=== PATIENT | female | born 1945 | race Caucasian/White ===

== ENCOUNTER 2018-07-20 21:16 | Inpatient (IN) | payer OTHER ==
--- NOTE | 2018-07-20 21:28 | PDOC ---
Attending Attestation - HPI HPI: 07/20/18 22:16 The patient is a 72 year old female with a significant past medical history of venostasis, multiple chemical sensitivity who presents to the emergency department via EMS with noted weakness since earlier this evening. The patient reports that she was at home when she began to experience some right eye pain and right hand numbness. The patient reports that she began to feel disoriented to where the vision in her right eye was off. The patient reports that her symptoms onset at about 8:20 pm. The patients niece, at bedside, states that she walked into the room and noticed the patient slumped over to her right side with a slight facial droop. The patient denies any other symptoms or complaints. She denies any fever, chills, nausea, vomiting, diarrhea, constipation or urinary symptoms. Denies any chest pain, shortness of breath headache, lower extremity numbness or dizziness. Documentation prepared by Felice Wiley, acting as emergency medical service manager for Devi Gonzalez DO, MD. <Felice Wiley - Last Filed: 07/20/18 22:18> - Resident Resident Name: Pamela Harrison - ED Attending Attestation I have performed the following: I have examined & evaluated the patient, The case was reviewed & discussed with the resident, I agree w/resident's findings & plan - Physicial Exam PE: 07/20/18 23:54 Agree with resident's physical exam - Medical Decision Making 07/20/18 23:55 72-year-old female with approximately 1-1/2 hours of right-sided facial and hand numbness preceded by right sided neck and headache Patient's neurological symptoms had improved at the time of arrival Stroke alert was activated due to focality of symptoms and time of onset is to repeat initial NIH was 2, repeat after CT scan was 1 [address] brain showed no acute abnormality Case discussed initially with Dr. Soto, neurology who does not recommend thrombolytics at this time On reevaluation at 12 AM patient is asymptomatic and states she feels back to baseline She is refusing a CTA of the head and neck due to her fear of IV contrast She was made aware that this may result in a delay in diagnosis affecting her prognosis and care, she has verbalized understanding and states that she will discuss possibility of MRI with staff in the morning She is agreeing to admission at this time Impression TIA <Devi Gonzalez - Last Filed: 07/21/18 00:01>
--- NOTE | 2018-07-20 21:31 | PDOC ---
History of Present Illness - General Chief Complaint: Weakness Stated Complaint: RT WEAKNESS Time Seen by Provider: 07/20/18 21:26 - History of Present Illness Initial Comments: 72 year old female with PMH of osteoarthritis and remote hypothyroidism ( currently unmedicated) presenting with right arm paresthesias, right sided headache/ facial pain, and left sided facial droop since 20:30 PM. Her last known well was 20:20. She called her niece and told her that she "felt funny" and was leaning to the left. States that her headache was a sharp and radiating pain 8/10 on the right side of her head stemming from her neck. She also felt some numbness on the dorsal aspect of her right hand. Denied any weakness. Her left face demonstrated minor paralysis on presentation to our ED. She stated that her hand numbness also improved. She was also complaining of some right sided blurry vision. Denies any fevers, chills, nausea, vomiting, chills, or other symptoms. Of note, she has a baseline weakness of her legs bilaterally and uses a walker at home. We ended up calling a yadi srivastava on her. 07/20/18 21:32 tPA Exclusion Checklist 0-3hr - Time Elapsed Date last known well: 07/20/18 Time last known well: 20:20 Elaspsed time: Day(s) and 10 Hour(s) and 38 Minutes - Thrombolytic Therapy Candidate Is the patient eligible for Thrombolytic Therapy?: Yes - Exclusion Criteria 0-3hr SBP greater than 185 or DBP greater than 110mmHg despite tx: No Recent IC/spinal surgery,head trauma or stroke w/in last 3mo: No Hx of previous IC hemorrhage, IC neoplasm, AVM or aneurysm: No Active internal bleeding: No Blding diathesis(low plt ct, inc PTT,INR>1.7 or use of NOAC): No Symptoms suggest subarachnoid hemorrhage: No CT demonstrates multilobar infarct(>1/3 cerebral hemiphere): No Arterial puncture at noncompressible site in previous 7 days: No - Relative Exclusion Criteria 0-3h Life expectancy <1yr/severe co-morbid illness/[employer] on admit: No : No Patient/family refused: No Rapid improvement: Yes Stroke severity too mild: No Recent acute [place] (w/in previous 3 months): No Seizure at onset with postictal residual neuro impairments: No Major surgery or serious trauma w/in previous 14 days: No Recent GI or hemorrhage (w/in previous 21 days): No - Ineligibility reason(s) Reasons No tPA given: See reason(s) noted above (Improvement and very low NIHSS - discussed with Neuro Dr. Diaz) NIH Stroke Scale - Last Known Well Date/Time & Onset Date Last Known Well: 07/20/18 Time Last Known Well: 20:20 - Initial Evaluation Level of consciousness: Alert Ask patient the month and their age: Answers both correctly Ask patient to open & close eyes; make fist and let go: Obeys both correctly Best gaze (horizontal eye movement): Normal Visual field testing: No visual field loss Facial paresis (Show teeth/raise eyebrows/close eyes tight): Minor paralysis ( flattened nasolabial fold, asymmetry on smiling) (left left angle) Motor Function: Left Arm: Normal Motor Function: Right Arm: Normal (extends arm 90 (or 45) degrees for 10 seconds without drift Motor Function: Left Leg: Untestable (Joint fused or limb amputated), explain: (chronic left leg weakness) Motor Function: Right Leg: Normal (extends leg 30 degrees for 5 seconds without drift) Limb Ataxia: Untestable (Joint fused or limb amputated), explain: (bilaterla leg weakness) Sensory(Use pinprick test arms,legs,trunk,face/side to side): Mild to moderate decrease in sensation Best language (Describe picture, name items, read sentences): No Aphasia Dysarthria (read several words): Normal articulation Extinction and Inattention: No abnormality (Exam performed at 21:17) - Total Score NIH Stroke Scale Score: 2 Past History - Past Medical History Allergies/Adverse Reactions: Allergies Allergy/AdvReac Type Severity Reaction Status Date / Time No Known Allergies Allergy Verified 07/20/18 21:25 Home Medications: Ambulatory Orders NK [No Known Home Medication] 07/20/18 - Suicide/Smoking/Psychosocial Hx Smoking History: Never smoked Have you smoked in the past 12 months: No Information on smoking cessation initiated: No Hx Alcohol Use: No Drug/Substance Use Hx: No Review of Systems - Review of Systems Constitutional: No: Chills, Diaphoresis, Fever, Loss of Appetite HEENTM: Yes: Blurred Vision. No: Eye Pain Respiratory: No: Cough, Orthopnea, Shortness of Breath, Wheezing Cardiac (ROS): No: Chest Pain, Edema, Irregular Heart Rate ABD/GI: No: Diarrhea, Nausea, Vomiting : No: Dysuria, Discharge, Frequency Musculoskeletal: No: Back Pain, Joint Pain, Joint Swelling Integumentary: No: Lesions, Lumps, Pallor Neurological: Yes: Headache. No: Numbness, Paresthesia Psychiatric: No: Anxiety, Depression Hematologic/Lymphatic: No: Anemia, Blood Clots, Easy Bleeding, Easy Bruising *Physical Exam - Vital Signs Last Vital Signs Temp Pulse Resp BP Pulse Ox 97.3 F L 94 H 17 143/98 100 07/20/18 21:16 07/20/18 21:16 07/20/18 21:16 07/20/18 21:16 07/20/18 21:16 - Physical Exam General Appearance: Yes: Nourished, Appropriately Dressed. No: Apparent Distress HEENT: positive: EOMI, JAMEL, Normal ENT Inspection, Normal Voice Neck: positive: Trachea midline, Normal Thyroid, Supple. negative: Tender, Rigid Respiratory/Chest: positive: Lungs Clear, Normal Breath Sounds. negative: Chest Tender, Respiratory Distress, Accessory Muscle Use Cardiovascular: positive: Regular Rhythm, Regular Rate Gastrointestinal/Abdominal: positive: Normal Bowel Sounds, Flat, Soft. negative : Tender Lymphatic: negative: Adenopathy, Tenderness Musculoskeletal: positive: Normal Inspection. negative: Decreased Range of Motion Integumentary: positive: Normal Color, Dry, Warm Neurologic: positive: Fully Oriented, Alert, Normal Mood/Affect, Motor Strength 5/5, Facial Droop (left sided partial droop at the edge of the lip), Sensory Deficit (right dorsawl hand paresthesias with partial genealized numbness.), Other Moderate Sedation - Procedure Monitoring Vital Signs: Procedure Monitoring Vital Signs Temperature 97.3 F L 07/20/18 21:16 Pulse Rate 94 H 07/20/18 21:16 Respiratory Rate 17 07/20/18 21:16 Blood Pressure 143/98 07/20/18 21:16 O2 Sat by Pulse Oximetry (%) 100 07/20/18 21:16 ED Treatment Course - LABORATORY CBC & Chemistry Diagram: 07/21/18 05:25 07/21/18 05:25 Medical Decision Making - Medical Decision Making 72 year old presenting with concern for CVA within window but low stroke scale of 2 on admission that improved to [address] so TPA withheld. Discussed case with Dr. Diaz of neurology as well and he agrees with withholding TPA. Overall story is atypical for stroke as she had right handed paresthesias with left sided facial droop. Furthermore, she states that she has "reactions to everything" but never is clear on what her reactions are. States she feels "cooky" and has trouble breasting but never had hives, angioedema, or anaphylactic reactions. 07/21/18 00:[address] Diaz and he agreed with CTA brain, CTA neck but the patient was hesitant originally. Admitted to floor for TIA rule out with negative head CT and pending CTA head/ neck pending. 07/21/18 06:58 *DC/Admit/Observation/Transfer Diagnosis at time of Disposition: TIA (transient ischemic attack) - Discharge Dispostion Condition at time of disposition: Fair Decision to Admit order: Yes - Referrals - Patient Instructions - Post Discharge Activity
[2018-07-20] MEDS: SODIUM CHLORIDE 1,000 ML IV SCH (21:47)
[2018-07-20 22:24] LABS: ALBUMIN 4.1 g/dl (3.4-5.0); ALK PHOS 856 U/L (45-117); ANION GAP 11 MMOL/L (8-16); BILIRUBIN,TOTAL 0.7 mg/dL (0.2-1); BLOOD UREA NITROGEN 14 mg/dL (7-18); CALCIUM 8.1 mg/dL (8.5-10.1); CHLORIDE 110 mmol/L (98-107); CHOLESTEROL 192 mg/dL (50-200); CO2 23 mmol/L (21-32); CREATININE 0.6 mg/dL (0.55-1.3); GLUCOSE,RANDOM 101 mg/dL (74-106); HDL CHOLESTEROL 90 mg/dL (40-60); POTASSIUM 3.8 mmol/L (3.5-5.1); SGOT/AST 17 U/L (15-37); SGPT/ALT 14 U/L (13-61); SODIUM 145 mmol/L (136-145); TOT PROT 7.1 g/dl (6.4-8.2); TRIGLYCERIDES 92 mg/dL (0-150)
[2018-07-20 22:42] LABS: BASO % 0.5 % (0-2.0); EOS % 0.6 % (0-4.5); HEMATOCRIT 43.2 % (32.4-45.2); HEMOGLOBIN 14.5 GM/dL (10.7-15.3); LYMPH % 15.9 % (8-40); MCH 31.4 pg (25.7-33.7); MCHC 33.5 g/dl (32.0-36.0); MEAN CELL VOLUME 93.7 fl (80-96); MEAN PLT VOLUME 9.1 fl (7.5-11.1); MONO % 2.7 % (3.8-10.2); NEUT % 80.3 % (42.8-82.8); PLATELET COUNT 185 K/MM3 (134-434); RBC 4.61 M/mm3 (3.60-5.2); RDW 14.4 % (11.6-15.6); WHITE BLOOD COUNT 4.3 K/mm3 (4.0-10.0)
[2018-07-20 22:46] LABS: INR 1.1 (0.83-1.09)
[2018-07-20] MEDS ORDERED: ACETAMINOPHEN 500 MG TABLET (FP) PO ONE (23:11)
[2018-07-20] MEDS ORDERED: ASPIRIN 81 MG CHEWABLE TABLETS PO ONE (23:15)
[2018-07-20] MEDS ORDERED: ATORVASTATIN CA 40 MG TABLET (FP) PO ONE (23:17)
[2018-07-20] MEDS ORDERED: ACETAMINOPHEN 325 MG TABLET (FP) ONE (23:36)
[2018-07-20] MEDS ORDERED: ATORVASTATIN CA 40 MG TABLET (FP) ONE (23:37)
[2018-07-20] MEDS ORDERED: ASPIRIN COATED 81 MG TABLET.EC ONE (23:37)
--- NOTE | 2018-07-20 23:37 | PDOC ---
NIH Stroke Scale - Last Known Well Date/Time & Onset Date Last Known Well: 07/20/18 Time Last Known Well: 20:20 - Initial Evaluation Level of consciousness: Alert Ask patient the month and their age: Answers both correctly Ask patient to open & close eyes; make fist and let go: Obeys both correctly Best gaze (horizontal eye movement): Normal Visual field testing: No visual field loss Facial paresis (Show teeth/raise eyebrows/close eyes tight): Minor paralysis ( flattened nasolabial fold, asymmetry on smiling) Motor Function: Left Arm: Normal Motor Function: Right Arm: Normal (extends arm 90 (or 45) degrees for 10 seconds without drift Motor Function: Left Leg: Untestable (Joint fused or limb amputated), explain: (Chronically weak) Motor Function: Right Leg: Normal (extends leg 30 degrees for 5 seconds without drift) Limb Ataxia: Untestable (Joint fused or limb amputated), explain: (Chronic weakness) Sensory(Use pinprick test arms,legs,trunk,face/side to side): Normal (Sensory deficit in right hand improved completely. Exam performed after CT scan at 22:00 ) Best language (Describe picture, name items, read sentences): No Aphasia Dysarthria (read several words): Normal articulation Extinction and Inattention: No abnormality - Total Score NIH Stroke Scale Score: 1
--- NOTE | 2018-07-21 02:05 | HP ---
CHIEF COMPLAINT: Right sided headache PCP: Dr. Jozef Cox (cardio) HISTORY OF PRESENT ILLNESS: The patient is a 72 yo f w/ PMH hypothryoidism (not currently on medication) and OA who was brought into the ED from home c/o right sided headache and left sided weakness since 8:30 pm this evening. The patient states that she was seated at home when she felt an acute onset of 8/10 right sided headache which centered over her right eye and radiated down the right side of her neck. This headache was associated with "weird changes" in her vision and right hand numbness. The patient called her niece, who is a nurse, who assessed her. The patients's niece endorsed right sided weakness and numbness on exam and called EMS. On arrival to ED, the patient's right sided weakness was still present, but improving. ED staff noted a left sided facial droop. NIH stoke scale 2. Code guido was called. CT of the head was negative. On re-evaluation, the patient 's RUE weakness had resolved, but a left sided facial droop still remained (NIH stroke scale 1). Neurology was consulted from the ED and suggested a CTA and Brain MRI as well as 81mg asa and 40 mg Lipitor. Neuro elected to hold off on Tpa since the patient's ssx were improving. At the time of interview, the patient has no other complaints. Recent Travel: none PAST MEDICAL HISTORY: osteoarthritis of the spine osteoporosis of the hips, not on therapy PAST SURGICAL HISTORY: none Social History: Smoking: denies Alcohol: denies Drugs: denies Follows vegan diet Family History: non-contributory Allergies No Known Allergies Allergy (Verified 07/20/18 21:25) HOME MEDICATIONS: Home Medications Medication Instructions Recorded NK [No Known Home Medication] 07/20/18 REVIEW OF SYSTEMS CONSTITUTIONAL: Absent: fever, chills, diaphoresis, generalized weakness, malaise, loss of appetite, weight change HEENT: Absent: rhinorrhea, nasal congestion, throat pain, throat swelling, difficulty swallowing, mouth swelling, ear pain, eye pain, visual changes CARDIOVASCULAR: Absent: chest pain, syncope, palpitations, irregular heart rate, lightheadedness , peripheral edema RESPIRATORY: Absent: cough, shortness of breath, dyspnea with exertion, orthopnea, wheezing, stridor, hemoptysis GASTROINTESTINAL: Absent: abdominal pain, abdominal distension, nausea, vomiting, diarrhea, constipation, melena, hematochezia GENITOURINARY: Absent: dysuria, frequency, urgency, hesitancy, hematuria, flank pain, genital pain MUSCULOSKELETAL: Absent: myalgia, arthralgia, joint swelling, back pain, neck pain SKIN: Absent: rash, itching, pallor HEMATOLOGIC/IMMUNOLOGIC: Absent: easy bleeding, easy bruising, lymphadenopathy, frequent infections ENDOCRINE: Absent: unexplained weight gain, unexplained weight loss, heat intolerance, cold intolerance NEUROLOGIC: Absent: headache, focal weakness or paresthesias, dizziness, unsteady gait, seizure, mental status changes, bladder or bowel incontinence PSYCHIATRIC: Absent: anxiety, depression, suicidal or homicidal ideation, hallucinations. PHYSICAL EXAMINATION Vital Signs - 24 hr 07/20/18 07/20/18 21:16 21:27 Temperature 97.3 F L Pulse Rate 94 H 94 H Respiratory 17 Rate Blood Pressure 143/98 O2 Sat by Pulse 100 100 Oximetry (%) GENERAL: Awake, alert, and fully oriented, in no acute distress. HEAD: Normal with no signs of trauma. EYES: Pupils equal, round and reactive to light, extraocular movements intact, sclera anicteric, conjunctiva clear. No lid lag. EARS, NOSE, THROAT: oropharynx clear without exudates. Moist mucous membranes. NECK: Normal range of motion, supple without lymphadenopathy, JVD, or masses. LUNGS: Breath sounds equal, clear to auscultation bilaterally. No wheezes, and no crackles. No accessory muscle use. HEART: Regular rate and rhythm, normal S1 and S2 without murmur, rub or gallop. ABDOMEN: Soft, nontender, not distended, normoactive bowel sounds, no guarding, no rebound, no masses. No hepatomegaly or splenomegaly. LOWER EXTREMITIES: 2+ pulses, warm, well-perfused. No calf tenderness. No peripheral edema. NEUROLOGICAL: Cranial nerves II-X intact. Normal speech. Strength 5/5 in both upper extremities. Strength 3/5 in both lower extremities. Patient states that this is baseline for her LE. Sensation preserved throughout. Slight left sided facial droop noted. SKIN: Warm, dry, normal turgor, no rashes or lesions noted, normal capillary refill. Laboratory Results - last 24 hr 01/21/19 01/21/19 01/21/19 21:31 21:49 21:51 WBC 4.3 RBC 4.61 Hgb 14.5 Hct 43.2 MCV 93.7 MCH 31.4 MCHC 33.5 RDW 14.4 Plt Count 185 MPV 9.1 Absolute Neuts (auto) 3.4 Neutrophils % 80.3 Lymphocytes % 15.9 Monocytes % 2.7 L Eosinophils % 0.6 Basophils % 0.5 Nucleated RBC % 0 PT with INR 13.00 INR 1.10 H Sodium Potassium Chloride Carbon Dioxide Anion Gap BUN Creatinine Creat Clearance w eGFR POC Glucometer [id number] Random Glucose Calcium Total Bilirubin AST ALT Alkaline Phosphatase Creatine Kinase Troponin I Total Protein Albumin Triglycerides Cholesterol Total LDL Cholesterol HDL Cholesterol Blood Type Antibody Screen 07/20/18 07/20/18 21:51 21:51 WBC RBC Hgb Hct MCV MCH MCHC RDW Plt Count MPV Absolute Neuts (auto) Neutrophils % Lymphocytes % Monocytes % Eosinophils % Basophils % Nucleated RBC % PT with INR INR Sodium 145 Potassium 3.8 Chloride 110 H Carbon Dioxide 23 Anion Gap 11 BUN 14 Creatinine 0.6 Creat Clearance w eGFR > 60 POC Glucometer Random Glucose 101 Calcium 8.1 L Total Bilirubin 0.7 AST 17 ALT 14 Alkaline Phosphatase 856 H Creatine Kinase 70 Troponin I < 0.02 Total Protein 7.1 Albumin 4.1 Triglycerides 92 Cholesterol 192 Total LDL Cholesterol 92 HDL Cholesterol 90 H Blood Type B POSITIVE Antibody Screen Negative ASSESSMENT/PLAN: The patient is a 72 yo f w/ PMH OA, osteoporosis and hypothyroidism who comes into the ED c/o right arm weakness, numbness and right sided headache since 8: 30 pm. She was found to have let sided facial droop #Right arm weakness and left sided facial droop possibly 2/2 TIA vs vitamin deficiency -NIH stroke scale at the time of interview: 1 -Patient's ssx improving. -patient follows vegan lifestyle; will check vit b12, b6 and folate as possible causes -s/p asa 81. lipitor [address] in ED per neuro -will order neck CTA and Brain MRI as per neuro -neurology consult: Dr. Diaz -HOB elevtated 30 degrees -dysphagia precautions -fall precautions -speech and swallow eval in AM -physical therapy -echo -TSH in am to eval as possible cause -ESR -admit to tele obs #Elevated ALP -patient asymptomatic at this time -will order abd US r/o gallbladder or pancreatic cause -consider GI eval in the AM #FEN -no fluids indicated; encourage oral hydration after bedside swallow performed. -lytes WNL -NPO until bedside eval performed or speech and swallow evaluation. #Prophy -SCDs #Dispo -admit tele obs Visit type - Emergency Visit Emergency Visit: Yes ED Registration Date: 07/20/18 Care time: The patient presented to the Emergency Department on the above date and was hospitalized for further evaluation of their emergent condition. - New Patient This patient is new to me today: Yes Date on this admission: 07/21/18 - Critical Care Critical Care patient: No
--- NOTE | 2018-07-21 02:28 | PN ---
Teaching Attending Note Name of Resident: Chris Prather ATTENDING PHYSICIAN STATEMENT I saw and evaluated the patient. I reviewed the resident's note and discussed the case with the resident. I agree with the resident's findings and plan as documented. SUBJECTIVE: Seen and examined with resident; please see their note for further historical information. Presents for TIA sx today; at 8PM she was found to have a sudden onset headache with R-sided visual field changes (describes as distorted) and R- sided UE weakness. She was incidentally found to have a L-facial droop while in the ER. Chana Martinez called; neuro recommended not giving tPA for reasons as documented in ER records. Vision and weakness at baseline; her L-sided facial droop (evidenced by nasolabial flattening) still present at the time of visit. She has chronic b/l LE weakness that is at baseline; she attributes this to chemical exposure at her apartment complex years ago. She takes no Rx medication. She is vegan. She is in good spirits. Will be brought to telemetry floor on observation with neuro consult. Was reluctant to pursue further testing when down in the ER. 10 sys ROS done and negative aside from HPI PMH and PSH reviewed FH asked and noncontributory Social history reviewed; as per resident documentation Medications reviewed OBJECTIVE: VS, labs, imaging reviewed NAD, AAO, resting in bed NIHSS 1 (L-facial droop); CN otherwise wnl. 4/5 LE 5/5 UE strength with no distortions in sensorium. 4/5 LE is baseline for her. RRR s1/2 no mgr Lungs CTAB w/ sym exp NT ND +BS Normal mood, appropriate affect. CBC and BMP unremarkable; Alk phos elevated 800-range Prelim CT findings show mild volume loss and probably mild periventricular chronic microvascular ischemic disease changes with no gross acute infarct. CTA Head and Neck and MRI pending. Echo pending EKG reviewed ASSESSMENT AND PLAN: Presents with TIA (RUE weakness, visual changes, L-facial droop; only L-facial droop persists and is very mild) and found to have Alk Phos 800 range. 1) TIA vs. CVA -Aforementioned findings, imaging. MRI, echo, CTA (neck included in order from ER so can avoid dopplers) remain pending. -Checking TSH, A1c. Lipids reviewed; ASCVD risk recommends moderate to high intensity statin so ordering Lipitor 20. -Checking B12, folate, B6. She is a Vegan and veganism can precipitate nutritional deficiencies that can present with neuro sx, etc. -Swallow eval, PT eval. -Followup with neurology consult; appreciate their presence on the case. 2) Chronic LE Weakness -States that it is due to enviornmental trigger and her osteoporosis. No acute changes. PT consult, check B12 and ESR; monitor. This is her baseline. 3) Elevated Alkaline Phosphatase -No prior labs; no other derangements in LFTs. Larger than what one would expect for postprandial increase; not . Is a vegan but no prolongd fasting, etc. Checking GGT. -Ordered RUQ US and trending CMP; will follow. No c/o abdominal pain. If ducts dilated further testing with MRCP/ERCP; if ducts are normal but elevated GGT can consider AMA, etc. Consider GI consult. 4) B/L Venous Stasis Changes -She insists that she has had a complete outpatient workup done through [facility] [place]; can obtain old records and compare. She told us this included venous and arterial dopplers, etc. 5) Hx Osteoporosis -She tells us that she has severe osteoporosis that is not being treated aside from transdermal vitamin D ointment. She has never been on bisphosphonates, etc. Should followup with PCP for further testing FENA -PO fluids if passes swallow eval -PRN replete -Heart Healthy -As tolerated; PT consult Full Code
[2018-07-21 05:49] LABS: BASO % 0.4 % (0-2.0); EOS % 0.2 % (0-4.5); HEMATOCRIT 40.5 % (32.4-45.2); HEMOGLOBIN 13.5 GM/dL (10.7-15.3); LYMPH % 16.1 % (8-40); MCH 31.2 pg (25.7-33.7); MCHC 33.4 g/dl (32.0-36.0); MEAN CELL VOLUME 93.4 fl (80-96); MEAN PLT VOLUME 8.9 fl (7.5-11.1); MONO % 4.4 % (3.8-10.2); NEUT % 78.9 % (42.8-82.8); PLATELET COUNT 180 K/MM3 (134-434); RBC 4.33 M/mm3 (3.60-5.2); RDW 14.5 % (11.6-15.6); WHITE BLOOD COUNT 5.3 K/mm3 (4.0-10.0)
[2018-07-21 06:01] LABS: INR 1.11 (0.83-1.09); PROTHROMBIN TIME (PATIENT) 13.1 SEC (9.7-13.0)
[2018-07-21 06:03] LABS: ACTIVATED PTT 30.9 SECONDS (25.2-36.5)
[2018-07-21 06:47] LABS: ANION GAP 10 MMOL/L (8-16); BLOOD UREA NITROGEN 13 mg/dL (7-18); CALCIUM 7.5 mg/dL (8.5-10.1); CHLORIDE 109 mmol/L (98-107); CHOLESTEROL 154 mg/dL (50-200); CO2 22 mmol/L (21-32); CREATININE 0.4 mg/dL (0.55-1.3); GLUCOSE,RANDOM 84 mg/dL (74-106); HDL CHOLESTEROL 77 mg/dL (40-60); MAGNESIUM 2.2 mg/dL (1.8-2.4); PHOSPHOROUS 1.8 mg/dL (2.5-4.9); POTASSIUM 3.7 mmol/L (3.5-5.1); SODIUM 141 mmol/L (136-145); TRIGLYCERIDES 66 mg/dL (0-150)
[2018-07-21] MEDS ORDERED: POTASSIUM CHLORIDE TABS 20 MEQ TABLET.ER (FP) PO ONE ×2 (07:55→09:04)
[2018-07-21] MEDS: NAPH,MB-DB/K PH,MBDB POWDER PACKET PO SCH ×2 (09:25→23:32)
[2018-07-21] MEDS: ASPIRIN COATED 81 MG TABLET.EC PO SCH (09:25)
--- NOTE | 2018-07-21 10:07 | CONSULT ---
Consult - text type - Consultation Consultation Note: Neurology HISTORY OF PRESENT ILLNESS: 72 y/o F w/ PMH hypothryoidism (not 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 The patient stated that she was seated at home when she felt an acute onset of 8/10 right sided headache which centered over her right eye and radiated down the right side of her neck. This headache was associated with "weird changes" in her vision and right hand numbness. The patient called her niece, who is a nurse, who assessed her. The patients's niece endorsed right sided weakness and numbness on exam and called EMS. On arrival to ED, the patient's right sided weakness was still present, but improving. ED staff noted a left sided facial droop. NIH stoke scale 2. Chana guido was called. CT of the head was negative. On re-evaluation, the patient's RUE weakness had resolved, but a left sided facial droop still remained (NIH stroke scale 1). Per notes, Dr. Soto was called from the ED and suggested a CTA and Brain MRI as well as 81mg asa and 40 mg Lipitor. Elected to hold off on Tpa since the patient's ssx were improving. Patient remains asymptomatic. Consulted placed for me, reached out to Dr. Soto to inform him and offered to see patient, he was in agreement for me to see the patient. She remains stable neurologically, CTA neck completed, awaiting official read. MRI brain ordered, pending completion. Recent Travel: none PAST MEDICAL HISTORY: osteoarthritis of the spine osteoporosis of the hips, not on therapy PAST SURGICAL HISTORY: none Social History: Smoking: denies Alcohol: denies Drugs: denies Follows vegan diet Family History: non-contributory Allergies No Known Allergies Allergy (Verified 07/20/18 21:25) HOME MEDICATIONS: Home Medications Medication Instructions Recorded NK [No Known Home Medication] 07/20/18 REVIEW OF SYSTEMS CONSTITUTIONAL: Absent: fever, chills, diaphoresis, generalized weakness, malaise, loss of appetite, weight change HEENT: Absent: rhinorrhea, nasal congestion, throat pain, throat swelling, difficulty swallowing, mouth swelling, ear pain, eye pain, visual changes CARDIOVASCULAR: Absent: chest pain, syncope, palpitations, irregular heart rate, lightheadedness , peripheral edema RESPIRATORY: Absent: cough, shortness of breath, dyspnea with exertion, orthopnea, wheezing, stridor, hemoptysis GASTROINTESTINAL: Absent: abdominal pain, abdominal distension, nausea, vomiting, diarrhea, constipation, melena, hematochezia GENITOURINARY: Absent: dysuria, frequency, urgency, hesitancy, hematuria, flank pain, genital pain MUSCULOSKELETAL: Absent: myalgia, arthralgia, joint swelling, back pain, neck pain SKIN: Absent: rash, itching, pallor HEMATOLOGIC/IMMUNOLOGIC: Absent: easy bleeding, easy bruising, lymphadenopathy, frequent infections ENDOCRINE: Absent: unexplained weight gain, unexplained weight loss, heat intolerance, cold intolerance NEUROLOGIC: Absent: headache, focal weakness or paresthesias, dizziness, unsteady gait, seizure, mental status changes, bladder or bowel incontinence PSYCHIATRIC: Absent: anxiety, depression, suicidal or homicidal ideation, hallucinations. PHYSICAL EXAMINATION Vital Signs - 24 hr 07/20/18 07/20/18 21:16 21:27 Temperature 97.3 F L Pulse Rate 94 H 94 H Respiratory 17 Rate Blood Pressure 143/98 O2 Sat by Pulse 100 100 Oximetry (%) GENERAL: Awake, alert, and fully oriented, in no acute distress. HEAD: Normal with no signs of trauma. EYES: Pupils equal, round and reactive to light, extraocular movements intact, sclera anicteric, conjunctiva clear. No lid lag. EARS, NOSE, THROAT: oropharynx clear without exudates. Moist mucous membranes. NECK: Normal range of motion, supple without lymphadenopathy, JVD, or masses. LUNGS: Breath sounds equal, clear to auscultation bilaterally. No wheezes, and no crackles. No accessory muscle use. HEART: Regular rate and rhythm, normal S1 and S2 without murmur, rub or gallop. ABDOMEN: Soft, nontender, not distended, normoactive bowel sounds, no guarding, no rebound, no masses. No hepatomegaly or splenomegaly. LOWER EXTREMITIES: 2+ pulses, warm, well-perfused. No calf tenderness. No peripheral edema. NEUROLOGICAL: Cranial nerves II-X intact. Normal speech. Moving all extremities equally, Sensation preserved throughout. Slight left sided facial droop noted. SKIN: Warm, dry, normal turgor, no rashes or lesions noted, normal capillary refill. Laboratory Results - last 24 hr 0107/20/18 07/20/18 21:31 21:49 21:51 WBC 4.3 RBC 4.61 Hgb 14.5 Hct 43.2 MCV 93.7 MCH 31.4 MCHC 33.5 RDW 14.4 Plt Count 185 MPV 9.1 Absolute Neuts (auto) 3.4 Neutrophils % 80.3 Lymphocytes % 15.9 Monocytes % 2.7 L Eosinophils % 0.6 Basophils % 0.5 Nucleated RBC % 0 PT with INR 13.00 INR 1.10 H Sodium Potassium Chloride Carbon Dioxide Anion Gap BUN Creatinine Creat Clearance w eGFR POC Glucometer 97.34332 Random Glucose Calcium Total Bilirubin AST ALT Alkaline Phosphatase Creatine Kinase Troponin I Total Protein Albumin Triglycerides Cholesterol Total LDL Cholesterol HDL Cholesterol Blood Type Antibody Screen 07/20/18 07/20/18 21:51 21:51 WBC RBC Hgb Hct MCV MCH MCHC RDW Plt Count MPV Absolute Neuts (auto) Neutrophils % Lymphocytes % Monocytes % Eosinophils % Basophils % Nucleated RBC % PT with INR INR Sodium 145 Potassium 3.8 Chloride 110 H Carbon Dioxide 23 Anion Gap 11 BUN 14 Creatinine 0.6 Creat Clearance w eGFR > 60 POC Glucometer Random Glucose 101 Calcium 8.1 L Total Bilirubin 0.7 AST 17 ALT 14 Alkaline Phosphatase 856 H Creatine Kinase 70 Troponin I < 0.02 Total Protein 7.1 Albumin 4.1 Triglycerides 92 Cholesterol 192 Total LDL Cholesterol 92 HDL Cholesterol 90 H Blood Type B POSITIVE Antibody Screen Negative ASSESSMENT/PLAN: 72 y/o F w/ PMH hypothryoidism (not 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 Chana guido was called. CT of the head was negative. On re-evaluation, the patient's RUE weakness had resolved, but a left sided facial droop still remained (NIH stroke scale 1). Per notes, Dr. Soto was called from the ED and suggested a CTA and Brain MRI as well as 81mg asa and 40 mg Lipitor. Elected to hold off on Tpa since the patient's ssx were improving. Patient remains asymptomatic. Consulted placed for me, reached out to Dr. Soto to inform him and offered to see patient, he was in agreement for me to see the patient. She remains stable neurologically, CTA neck completed, awaiting official read. MRI brain ordered, pending completion. Continue ASA, Statin for now. LDL 75. Cardiac monitoring, telemetry. PT as tolerated. DVT ppx.
[2018-07-21 10:14] LABS: ERYTHROCYTE SEDIMENTATION RATE 6 mm/hr (0-30)
--- NOTE | 2018-07-21 11:25 | PN ---
Teaching Attending Note Name of Resident: Og Aparicio ATTENDING PHYSICIAN STATEMENT I saw and evaluated the patient. I reviewed the resident's note and discussed the case with the resident. I agree with the resident's findings and plan as documented. SUBJECTIVE: Patient reports that her right eye has not yet returned to normal. OBJECTIVE: Vital Signs Period Temp Pulse Resp BP Sys/Lantigua Pulse Ox Last 24 Hr 97.3 F-98.4 F 76-94 16-17 119-143/75-98 100-100 HEART: S1S2, RRR LUNGS: Clear ABDOMEN: Soft, non-tender, non-distended normal BS EXTREMITIES: No edema NEUROLOGICAL: Alert, oriented, no facial droop, strength intact, sensation intact, vision intact, speech normal Laboratory Results - last 24 hr 07/20/18 07/20/18 07/20/18 21:31 21:49 21:51 WBC 4.3 RBC 4.61 Hgb 14.5 Hct 43.2 MCV 93.7 MCH 31.4 MCHC 33.5 RDW 14.4 Plt Count 185 MPV 9.1 Absolute Neuts (auto) 3.4 Neutrophils % 80.3 Lymphocytes % 15.9 Monocytes % 2.7 L Eosinophils % 0.6 Basophils % 0.5 Nucleated RBC % 0 ESR PT with INR 13.00 INR 1.10 H PTT (Actin FS) Sodium Potassium Chloride Carbon Dioxide Anion Gap BUN Creatinine Creat Clearance w eGFR POC Glucometer 97.31487 Random Glucose Calcium Phosphorus Magnesium Total Bilirubin GGT AST ALT Alkaline Phosphatase Creatine Kinase Troponin I Total Protein Albumin Triglycerides Cholesterol Total LDL Cholesterol HDL Cholesterol Vitamin B12 TSH Blood Type Antibody Screen 07/20/18 07/20/18 07/21/18 21:51 21:51 05:25 WBC 5.3 RBC 4.33 Hgb 13.5 Hct 40.5 MCV 93.4 MCH 31.2 MCHC 33.4 RDW 14.5 Plt Count 180 MPV 8.9 Absolute Neuts (auto) 4.2 Neutrophils % 78.9 Lymphocytes % 16.1 Monocytes % 4.4 Eosinophils % 0.2 Basophils % 0.4 Nucleated RBC % 0 ESR 6 PT with INR INR PTT (Actin FS) Sodium 145 Potassium 3.8 Chloride 110 H Carbon Dioxide 23 Anion Gap 11 BUN 14 Creatinine 0.6 Creat Clearance w eGFR > 60 POC Glucometer Random Glucose 101 Calcium 8.1 L Phosphorus Magnesium Total Bilirubin 0.7 GGT AST 17 ALT 14 Alkaline Phosphatase 856 H Creatine Kinase 70 Troponin I < 0.02 Total Protein 7.1 Albumin 4.1 Triglycerides 92 Cholesterol 192 Total LDL Cholesterol 92 HDL Cholesterol 90 H Vitamin B12 TSH Blood Type B POSITIVE Antibody Screen Negative 07/21/18 07/21/18 07/21/18 05:25 05:25 05:25 WBC RBC Hgb Hct MCV MCH MCHC RDW Plt Count MPV Absolute Neuts (auto) Neutrophils % Lymphocytes % Monocytes % Eosinophils % Basophils % Nucleated RBC % ESR PT with INR 13.10 H INR 1.11 H PTT (Actin FS) 30.9 Sodium 141 Potassium 3.7 Chloride 109 H Carbon Dioxide 22 Anion Gap 10 BUN 13 Creatinine 0.4 L Creat Clearance w eGFR > 60 POC Glucometer Random Glucose 84 Calcium 7.5 L Phosphorus 1.8 L Magnesium 2.2 Total Bilirubin GGT 7 AST ALT Alkaline Phosphatase Creatine Kinase Troponin I Total Protein Albumin Triglycerides 66 Cholesterol 154 Total LDL Cholesterol 75 HDL Cholesterol 77 H Vitamin B12 67 L TSH 1.91 Blood Type Antibody Screen Current Medications Generic Name Dose Route Start Last Admin Trade Name Tavo PRN Reason Stop Dose Admin Aspirin 81 mg 07/21/18 10:00 07/21/18 09:25 Ecotrin - PO 81 mg DAILY CHARAN Administration Atorvastatin Calcium 20 mg 07/21/18 22:00 Lipitor - PO HS CHARAN Sodium Chloride 1,000 mls @ 42 mls/hr 07/20/18 21:45 07/20/18 21:47 Normal Saline - IV 42 mls/hr ASDIR CHARAN Administration Potassium Phos/Sodium Phos 1 packet 07/21/18 10:00 07/21/18 09:25 Phos-Nak Packet - PO 07/21/18 22:01 Not Given BID CHARAN ASSESSMENT AND PLAN: This is a 72 year old woman with a history of osteoarthritis, osteoporosis, hypothyroidism who presented to the ED with right arm weakness and numbness, right sided headache, and left sided facial droop. 1. Possible TIA with right arm weakness and left facial droop - Improved - Continue aspirin, Lipitor - Continue telemetry monitoring - CTA of neck, MRI of brain pending 2. Elevated alkaline phosphatase - RUQ US pending 3. Vitamin B12 deficiency - Start B12 supplementation 4. Hypophosphatemia - Continue PhosNaK 5. Hypothyroidism - TSH is normal (1.91) on no meds
--- NOTE | 2018-07-21 11:30 | ECHO ---
Name: SILVIA MCKEON Exam:Adult Echocardiogram Study Date: 07/21/2018 07:55 AM Age: 72 yrs Reason For Study: EVAL STROKE Height: 60 in Weight: 110 lb BSA: 1.4 m2 MMode/2D Measurements & Calculations IVSd: 0.81 cm Ao root diam: 3.3 cm LVIDd: 3.5 cm LA dimension: 3.5 cm LVIDs: 2.1 cm ACS: 1.9 cm LVPWd: 0.79 cm IVSs: 0.86 cm LVPWs: 1.2 cm EDV(Teich): 49.5 ml ESV(Teich): 13.8 ml Doppler Measurements & Calculations MV E max vic: 53.3 cm/sec Ao V2 max: 100.1 cm/sec MV A max vic: 51.1 cm/sec Ao max P.0 mmHg MV E/A: 1.0 Ao V2 mean: 62.8 cm/sec Ao mean P.9 mmHg Ao V2 VTI: 20.3 cm TR max vic: 152.0 cm/sec Med Peak E' Vic: 6.3 cm/sec TR max P.3 mmHg Med E/e': 8.4 RVSP(TR): 19.3 mmHg Lat Peak E' Vic: 9.7 cm/sec Lat E/e': 5.5 RAP systole: 10.0 mmHg Procedure A two-dimensional transthoracic echocardiogram with color flow and Doppler was performed. The patient was in normal sinus rhythm during the exam. Left Ventricle The left ventricle is normal in size. Left ventricular systolic function is normal. Right Ventricle The right ventricle is not well visualized. The right ventricular systolic function is grossly normal . Atria The left atrial size is normal. Mitral Valve The mitral valve is normal. There is mild mitral regurgitation. Tricuspid Valve The tricuspid valve is not well visualized, but is grossly normal. There is trace tricuspid regurgita tion. Aortic Valve The aortic valve is normal in structure and function. The aortic valve is trileaflet. The aortic valv e opens well. Trace aortic regurgitation. Pulmonic Valve The pulmonic valve is not well visualized. The pulmonic valve is not well seen, but is grossly normal . Trace pulmonic valvular regurgitation. Great Vessels The aortic root is normal size. Pericardium/Pleura There is no pericardial effusion. Interpretation Summary Left ventricular systolic function is normal. The right ventricular systolic function is grossly normal. There is mild mitral regurgitation. There is trace tricuspid regurgitation. Trace aortic regurgitation. Trace pulmonic valvular regurgitation. There is no pericardial effusion. MD Jimi Heck 07/21/2018 11:29 AM
--- NOTE | 2018-07-21 14:28 | PN ---
Physical Exam: SUBJECTIVE: Patient seen and examined this AM. 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 She states she does not take any medications at home and that she has been a vegan for 40 years. She states that she is not currently having any blurry vision or weakness but states that her right eye "has not fully come back yet". She is unable to elaborate further what she means by that. OBJECTIVE: Vital Signs Period Temp Pulse Resp BP Sys/Lantigua Pulse Ox Last 24 Hr 97.3 F-98.4 F 76-94 16-17 119-143/75-98 100-100 GENERAL: A&O, no acute distress HEAD: Normocephalic, atraumatic. EYES: PERRL, EOMI, no scleral icterus EARS, NOSE, THROAT: oropharynx clear without exudates. Moist mucous membranes. LUNGS: CTA b/l, no crackles or wheezes HEART: Regular rate and rhythm, normal S1 and S2 without murmur ABDOMEN: Soft, nontender to palpation, normoactive bowel sounds NEUROLOGICAL: Cranial nerves II-XII grossly intact. Normal speech. mild left facial droop. 5/5 strength throughout. Sensation grossly in tact though patient with difficulty determining if sensation is the same b/l face and arms Laboratory Results - last 24 hr 07/20/18 07/20/18 07/20/18 21:31 21:49 21:51 WBC 4.3 RBC 4.61 Hgb 14.5 Hct 43.2 MCV 93.7 MCH 31.4 MCHC 33.5 RDW 14.4 Plt Count 185 MPV 9.1 Absolute Neuts (auto) 3.4 Neutrophils % 80.3 Lymphocytes % 15.9 Monocytes % 2.7 L Eosinophils % 0.6 Basophils % 0.5 Nucleated RBC % 0 ESR PT with INR 13.00 INR 1.10 H PTT (Actin FS) Sodium Potassium Chloride Carbon Dioxide Anion Gap BUN Creatinine Creat Clearance w eGFR POC Glucometer 97.41295 Random Glucose Calcium Phosphorus Magnesium Total Bilirubin GGT AST ALT Alkaline Phosphatase Creatine Kinase Troponin I Total Protein Albumin Triglycerides Cholesterol Total LDL Cholesterol HDL Cholesterol Vitamin B12 TSH Blood Type Antibody Screen 07/20/18 07/20/18 07/21/18 21:51 21:51 05:25 WBC 5.3 RBC 4.33 Hgb 13.5 Hct 40.5 MCV 93.4 MCH 31.2 MCHC 33.4 RDW 14.5 Plt Count 180 MPV 8.9 Absolute Neuts (auto) 4.2 Neutrophils % 78.9 Lymphocytes % 16.1 Monocytes % 4.4 Eosinophils % 0.2 Basophils % 0.4 Nucleated RBC % 0 ESR 6 PT with INR INR PTT (Actin FS) Sodium 145 Potassium 3.8 Chloride 110 H Carbon Dioxide 23 Anion Gap 11 BUN 14 Creatinine 0.6 Creat Clearance w eGFR > 60 POC Glucometer Random Glucose 101 Calcium 8.1 L Phosphorus Magnesium Total Bilirubin 0.7 GGT AST 17 ALT 14 Alkaline Phosphatase 856 H Creatine Kinase 70 Troponin I < 0.02 Total Protein 7.1 Albumin 4.1 Triglycerides 92 Cholesterol 192 Total LDL Cholesterol 92 HDL Cholesterol 90 H Vitamin B12 TSH Blood Type B POSITIVE Antibody Screen Negative 07/21/18 07/21/18 07/21/18 05:25 05:25 05:25 WBC RBC Hgb Hct MCV MCH MCHC RDW Plt Count MPV Absolute Neuts (auto) Neutrophils % Lymphocytes % Monocytes % Eosinophils % Basophils % Nucleated RBC % ESR PT with INR 13.10 H INR 1.11 H PTT (Actin FS) 30.9 Sodium 141 Potassium 3.7 Chloride 109 H Carbon Dioxide 22 Anion Gap 10 BUN 13 Creatinine 0.4 L Creat Clearance w eGFR > 60 POC Glucometer Random Glucose 84 Calcium 7.5 L Phosphorus 1.8 L Magnesium 2.2 Total Bilirubin GGT 7 AST ALT Alkaline Phosphatase Creatine Kinase Troponin I Total Protein Albumin Triglycerides 66 Cholesterol 154 Total LDL Cholesterol 75 HDL Cholesterol 77 H Vitamin B12 67 L TSH 1.91 Blood Type Antibody Screen Active Medications Generic Name Dose Route Start Last Admin Trade Name Freq PRN Reason Stop Dose Admin Aspirin 81 mg 07/21/18 10:00 07/21/18 09:25 Ecotrin - PO 81 mg DAILY CHARAN Administration Atorvastatin Calcium 20 mg 07/21/18 22:00 Lipitor - PO HS CHARAN Sodium Chloride 1,000 mls @ 42 mls/hr 07/20/18 21:45 07/20/18 21:47 Normal Saline - IV 42 mls/hr ASDIR CHARAN Administration Potassium Phos/Sodium Phos 1 packet 07/21/18 10:00 07/21/18 09:25 Phos-Nak Packet - PO 07/21/18 22:01 Not Given BID CHARAN ASSESSMENT/PLAN: 72 yo f w/ PMH OA, osteoporosis and hypothyroidism admitted with c/o right arm weakness, numbness and right sided headache CVA/TIA -Right sided symptoms have greatly improved/resolved -Left facial droop noted in ED -Neurology consultation appreciated -CT with chronic ischemic changes but no acute pathology -CTA without any evidence of hemodynamically significant stenosis -Brain MRI pending -ECHO without any significant valvular or structural abnormalities, EF normal -ASA 81 -Lipitor 20 mg PO HS Hypothyroidism -Not on any medications at home -TSH 1.91, will hold off medications for now but should regularly follow up with primary for monitoring OA -Pain control with Tylenol PRN Vitamin Deficiency -Vegan diet for many years -B12 is low at 67 -B6 and Folate levels pending -H/H within normal limits DVT Prophylaxis -SCDs and Early Ambulation FEN -Fluids: none -Electrolytes: HypoPhos, replete, BMP in AM -Nutrition: Passed bedside swallow eval, Regular diet Disposition Telemetry Visit type - Emergency Visit Emergency Visit: Yes ED Registration Date: 07/20/18 Care time: The patient presented to the Emergency Department on the above date and was hospitalized for further evaluation of their emergent condition. - New Patient This patient is new to me today: Yes Date on this admission: 07/21/18 - Critical Care Critical Care patient: No
--- NOTE | 2018-07-21 14:41 | CONSULT ---
Admitting History and Physical - Primary Care Physician PCP: Chadwick Reddy - Admission History of Present Illness: Per EMR: HISTORY OF PRESENT ILLNESS: The patient is a 72 yo f w/ PMH hypothryoidism (not currently on medication) and OA who was brought into the ED from home c/o right sided headache and left sided weakness since 8:30 pm this evening. The patient states that she was seated at home when she felt an acute onset of 8/10 right sided headache which centered over her right eye and radiated down the right side of her neck. This headache was associated with "weird changes" in her vision and right hand numbness. The patient called her niece, who is a nurse, who assessed her. The patients's niece endorsed right sided weakness and numbness on exam and called EMS. On arrival to ED, the patient's right sided weakness was still present, but improving. ED staff noted a left sided facial droop. NIH stoke scale 2. Code guido was called. CT of the head was negative. On re-evaluation, the patient 's RUE weakness had resolved, but a left sided facial droop still remained (NIH stroke scale 1). Neurology was consulted from the ED and suggested a CTA and Brain MRI as well as 81mg asa and 40 mg Lipitor. Neuro elected to hold off on Tpa since the patient's ssx were improving. At the time of interview, the patient has no other complaints. MRI-Acute small infarcts History Source: Patient Limitations to Obtaining History: No Limitations - Smoking History Smoking history: Never smoked Have you smoked in the past 12 months: No - Alcohol/Substance Use Hx Alcohol Use: No History - Admission Reason For Visit: SUSPECTED CEREBROVASCULAR ACCIDENT (CVA) - Diagnostics X-ray: Report Reviewed CT Scan: Report Reviewed MRI: Report Reviewed - General Mental Status: Alert and Oriented, Awake and Alert, Able to Follow Commands Attention: Intact Ability to Follow Directions: Good Head/Neck Control: WFL - Hearing Hearing: Functional Speech Evaluation - Communication Primary Language: YI Communication: Yes: Within Normal Limits Oral Expression Ability: Yes: No Impairment - Speech Production Able to Make Needs Known: Yes: WNL Intelligibility: Yes: WNL - Speech Characteristics Voice Loudness: Normal Voice Pitch: Yes: Normal Voice Phonatory-based Quality: Yes: Normal Speech Pattern: Normal Speech Clarity: < 100% Nasal Resonance: Normal Articulation: Yes: Precise - Language/Auditory Comprehension Follows: Yes: 2 Stage Simple Commands - Language/Verbal Expression Able to Respond to Simple Queries: Yes: WNL Able to Communicate Wants and Needs: Yes: WNL Functional Communication Status: Yes: WNL - Swallow Evaluation/Bedside Assessment Current Nutritional Intake: NPO Oral Secretions: Yes: WFL Dentition: Yes: Adequate Facial Symmetry at Rest: Facial Droop Left (slight) Against Resistance Opening: Normal Against Resistance Closing: Normal Pucker Lips: Normal Smile: Normal Lingual Movement: Normal, Symmetric Lingual Speed of Movement: Normal Lingual Movement Strgth Against Opposition: Normal Lingual Movement Characteristics: Normal Velopharyngeal Movement: Normal Laryngeal Movement: Able to Palpate Rate of Intake: WFL Bolus Size: WFL Oral Prep Time: WFL A-P Transit: WFL Pocketing: None Timing of Swallow: WFL Coughing/Throat Clear: No Change in Voice: No Recommendations - Speech Evaluation, Impression/Plan Impression: Pt seen in [place]/S. c/o pain with elevation of head of stretcher. Limited PO trials given due to positioning. Speech precise. Language grossly intact. Brisk swallow with trial of applesauce. - Dysphagia Impressions/Plan Dysphagia Impressions: Minimal Impairment *Silent aspiration: cannot be R/O at bedside Dysphagia Treatment Plan: Small Bites, Chin Tuck/Down, Clear Pocket Food, Trial Feedings, Safe Rate, 1/2 tsp. at a time, Elevate HOB during feed (as tolerated) , Other (Monitor tolerance. Will reassess once upsttairs on the floor when better able to elevate HOB) - Recommendations Diet Consistency: Dysphagia Minced (Vegan. Asked if we have Organic.) Medication Administration: Whole with water Liquids: Thin Liquids
--- NOTE | 2018-07-21 16:36 | EKG ---
Test Reason : Blood Pressure : / mmHG Vent. Rate : 082 BPM Atrial Rate : 082 BPM P-R Int : 106 ms QRS Dur : 078 ms QT Int : 396 ms P-R-T Axes : 036 -20 024 degrees QTc Int : 462 ms SINUS RHYTHM WITH SHORT ID LOW VOLTAGE QRS CANNOT RULE OUT ANTERIOR INFARCT , AGE UNDETERMINED ABNORMAL ECG NO PREVIOUS ECGS AVAILABLE Confirmed by MD BENITA, NILDA ([id number]) on 07/21/2018 4:35:35 PM Referred By: Confirmed By:NILDA JOY MD
[2018-07-21] MEDS: SODIUM CHLORIDE 1,000 ML IV SCH (21:52)
[2018-07-21] MEDS ORDERED: ATORVASTATIN CA 20 MG TABLET (FP) PO SCH (22:00)
[2018-07-21] MEDS ORDERED: ATORVASTATIN CA 10 MG TABLET (FP) ONE (23:17)
[2018-07-22 01:23] LABS: URINE APPEARANCE CLEAR; URINE BILIRUBIN NEGATIVE (<2.0 mg/dL); URINE COLOR YELLOW; URINE GLUCOSE (UA) NEGATIVE (NEGATIVE); URINE KETONE 2+ (NEGATIVE); URINE LEUK ESTERASE NEGATIVE (NEGATIVE); URINE NITRITE NEGATIVE (NEGATIVE); URINE PROTEIN 1+ (NEGATIVE)
[2018-07-22 01:29] LABS: EPI CELLS RARE /HPF (FEW); URINE BACTERIA RARE /hpf (NONE SEEN); URINE HYALINE CAST 1 /lpf; URINE MUCUS FEW
[2018-07-22 06:32] LABS: HEMATOCRIT 41.7 % (32.4-45.2); HEMOGLOBIN 13.9 GM/dL (10.7-15.3); MCH 31.5 pg (25.7-33.7); MCHC 33.4 g/dl (32.0-36.0); MEAN CELL VOLUME 94.4 fl (80-96); MEAN PLT VOLUME 9.1 fl (7.5-11.1); PLATELET COUNT 183 K/MM3 (134-434); RBC 4.42 M/mm3 (3.60-5.2); RDW 14.2 % (11.6-15.6); WHITE BLOOD COUNT 4.6 K/mm3 (4.0-10.0)
[2018-07-22 07:16] LABS: ANION GAP 8 MMOL/L (8-16); BLOOD UREA NITROGEN 13 mg/dL (7-18); CALCIUM 7.4 mg/dL (8.5-10.1); CHLORIDE 110 mmol/L (98-107); CO2 23 mmol/L (21-32); CREATININE 0.4 mg/dL (0.55-1.3); GLUCOSE,RANDOM 94 mg/dL (74-106); MAGNESIUM 2.3 mg/dL (1.8-2.4); PHOSPHOROUS 1.6 mg/dL (2.5-4.9); POTASSIUM 3.6 mmol/L (3.5-5.1); SODIUM 141 mmol/L (136-145)
--- NOTE | 2018-07-22 10:12 | PN ---
Progress Note (short form) - Note Progress Note: Neurology HISTORY OF PRESENT ILLNESS: 72 y/o F w/ PMH hypothryoidism (not 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 The patient stated that she was seated at home when she felt an acute onset of 8/10 right sided headache which centered over her right eye and radiated down the right side of her neck. This headache was associated with "weird changes" in her vision and right hand numbness. The patient called her niece, who is a nurse, who assessed her. The patients's niece endorsed right sided weakness and numbness on exam and called EMS. On arrival to ED, the patient's right sided weakness was still present, but improving. ED staff noted a left sided facial droop. NIH stoke scale 2. Chana guido was called. CT of the head was negative. On re-evaluation, the patient's RUE weakness had resolved, but a left sided facial droop still remained (NIH stroke scale 1). Per notes, Dr. Soto was called from the ED and suggested a CTA and Brain MRI as well as 81mg asa and 40 mg Lipitor. Elected to hold off on Tpa since the patient's ssx were improving. Patient remains asymptomatic. MRI completed and reviewed and discussed, showed multiple infarcts including R cerebellar and R frontal, acute. CTA neck completed and reviewed, otherwise normal, L vertebral not fully visualized but this would not explain right sided events. Active Medications Aspirin (Ecotrin -) 81 mg PO DAILY [facility] Last Admin: 07/21/18 09:25 Dose: 81 mg Atorvastatin Calcium (Lipitor -) 20 mg PO HS [facility] Last Admin: 07/21/18 23:31 Dose: Not Given Sodium Chloride (Normal Saline -) 1,000 mls @ 42 mls/hr IV ASDIR [facility] Last Admin: 07/21/18 21:52 Dose: 42 mls/hr PHYSICAL EXAMINATION Vital Signs Period Temp Pulse Resp BP Sys/Lantigua Pulse Ox Last 24 Hr 98.8 F 77-95 17-18 125-139/68-75 98-99 GENERAL: Awake, alert, and fully oriented, in no acute distress. HEAD: Normal with no signs of trauma. EYES: Pupils equal, round and reactive to light, extraocular movements intact, sclera anicteric, conjunctiva clear. No lid lag. EARS, NOSE, THROAT: oropharynx clear without exudates. Moist mucous membranes. NECK: Normal range of motion, supple without lymphadenopathy, JVD, or masses. LUNGS: Breath sounds equal, clear to auscultation bilaterally. No wheezes, and no crackles. No accessory muscle use. HEART: Regular rate and rhythm, normal S1 and S2 without murmur, rub or gallop. ABDOMEN: Soft, nontender, not distended, normoactive bowel sounds, no guarding, no rebound, no masses. No hepatomegaly or splenomegaly. LOWER EXTREMITIES: 2+ pulses, warm, well-perfused. No calf tenderness. No peripheral edema. NEUROLOGICAL: Cranial nerves II-X intact. Normal speech. Moving all extremities equally, Sensation preserved throughout. Slight left sided facial droop noted. SKIN: Warm, dry, normal turgor, no rashes or lesions noted, normal capillary refill. CBCD WBC 4.6 K/mm3 (4.0-10.0) 07/22/18 05:35 RBC 4.42 M/mm3 (3.60-5.2) 07/22/18 05:35 Hgb 13.9 GM/dL (10.7-15.3) 07/22/18 05:35 Hct 41.7 % (32.4-45.2) 07/22/18 05:35 MCV 94.4 fl (80-96) 07/22/18 05:35 MCHC 33.4 g/dl (32.0-36.0) 07/22/18 05:35 RDW 14.2 % (11.6-15.6) 07/22/18 05:35 Plt Count 183 K/MM3 (134-434) 07/22/18 05:35 MPV 9.1 fl (7.5-11.1) 07/22/18 05:35 CMP Sodium 141 mmol/L (136-145) 07/22/18 05:35 Potassium 3.6 mmol/L (3.5-5.1) 07/22/18 05:35 Chloride 110 mmol/L (98-107) H 07/22/18 05:35 Carbon Dioxide 23 mmol/L (21-32) 07/22/18 05:35 Anion Gap 8 MMOL/L (8-16) 07/22/18 05:35 BUN 13 mg/dL (7-18) 07/22/18 05:35 Creatinine 0.4 mg/dL (0.55-1.3) L 07/22/18 05:35 Creat Clearance w eGFR > 60 (>60) 07/22/18 05:35 Random Glucose 94 mg/dL (74-106) 07/22/18 05:35 Calcium 7.4 mg/dL (8.5-10.1) L 07/22/18 05:35 Total Bilirubin 0.7 mg/dL (0.2-1) 07/20/18 21:51 AST 17 U/L (15-37) 07/20/18 21:51 ALT 14 U/L (13-61) 07/20/18 21:51 Alkaline Phosphatase 856 U/L (45-117) H 07/20/18 21:51 Total Protein 7.1 g/dl (6.4-8.2) 07/20/18 21:51 Albumin 4.1 g/dl (3.4-5.0) 07/20/18 21:51 CARDIAC ENZYMES Creatine Kinase 70 IU/L (26-192) 07/20/18 21:51 Troponin I < 0.02 ng/ml (0.00-0.05) 07/20/18 21:51 ASSESSMENT/PLAN: 72 y/o F w/ PMH hypothryoidism (not 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 Code guido was called. CT of the head was negative. On re-evaluation, the patient's RUE weakness had resolved, but a left sided facial droop still remained (NIH stroke scale 1). Per notes, Dr. Soto was called from the ED and suggested a CTA and Brain MRI as well as 81mg asa and 40 mg Lipitor. Elected to hold off on Tpa since the patient's ssx were improving. Patient remains asymptomatic. Consulted placed for me, reached out to Dr. Soto to inform him and offered to see patient, he was in agreement for me to see the patient. She remains stable neurologically, C Patient remains asymptomatic. MRI completed and reviewed and discussed, showed multiple infarcts including R cerebellar and R frontal, acute. CTA neck completed and reviewed, otherwise normal, L vertebral not fully visualized but this would not explain right sided events. Continue ASA, Statin. Cardiac monitoring, telemetry. PT as tolerated. DVT ppx.
[2018-07-22] MEDS: ASPIRIN COATED 81 MG TABLET.EC PO SCH (10:23)
[2018-07-22 11:51] VITALS: BMI 20.9
--- NOTE | 2018-07-22 12:13 | PN ---
Progress Note, EXECUTIVE ASSISTANT TO GENERAL COUNSEL - Note Progress Note: Selected Entries 07/22/18 11:44 Temperature 97.4 F L Laboratory Tests 07/22/18 05:35 WBC 4.6 Pt now on telemetry. Bizarre responses. Oriented to Jun, 2018, Courtney,73 yo, thinks she is in "[place], lives above me." But says she lives in [place]. Oriented her to [facility], needed reminders to retain info. 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 Can not inhale scents/chemicals. Reports Independent in care. Euphoric. Speech precise. Swallow reassessed with good mastication/tolerance of bread/3 oz water test. Pt's first admission to [facility]. IMP:Impaired insight/memory- acute vs ongoing/dementia? Speech/language/swallowing intact REC: Reg diet/thin liquids.
[2018-07-22] MEDS ORDERED: CYANOCOBALAMIN (VITAMIN B-12) 1000 MCG/1 ML VIAL IM ONE (13:39)
--- NOTE | 2018-07-22 13:39 | PN ---
Teaching Attending Note Name of Resident: Og Aparicio ATTENDING PHYSICIAN STATEMENT I saw and evaluated the patient. I reviewed the resident's note and discussed the case with the resident. I agree with the resident's findings and plan as documented. SUBJECTIVE: Patient has no complaints. OBJECTIVE: Vital Signs Period Temp Pulse Resp BP Sys/Lantigua Pulse Ox Last 24 Hr 97.4 F-98.8 F 72-95 17-20 95-139/43-75 98-99 HEART: S1S2, RRR LUNGS: Clear ABDOMEN: Soft, non-tender, non-distended, normal BS EXTREMITIES: No edema NEUROLOGICAL: Alert, oriented, non-focal Laboratory Results - last 24 hr 07/20/18 07/20/18 07/22/18 21:31 23:25 05:35 WBC 4.6 RBC 4.42 Hgb 13.9 Hct 41.7 MCV 94.4 MCH 31.5 MCHC 33.4 RDW 14.2 Plt Count 183 MPV 9.1 Sodium Potassium Chloride Carbon Dioxide Anion Gap BUN Creatinine Creat Clearance w eGFR Random Glucose Calcium Phosphorus Magnesium Urine Color Yellow Urine Appearance Clear Urine pH 6.0 Ur Specific [place] 1.048 H Urine Protein 1+ H Urine Glucose (UA) Negative Urine Ketones 2+ H Urine Blood Negative Urine Nitrite Negative Urine Bilirubin Negative Urine Urobilinogen 2.0 H Ur Leukocyte Esterase Negative Urine WBC (Auto) 2 Urine RBC (Auto) 2 Ur Epithelial Cells Rare Urine Bacteria Rare Hyaline Casts 1 Urine Mucus Few Blood Type B POSITIVE 07/22/18 05:35 WBC RBC Hgb Hct MCV MCH MCHC RDW Plt Count MPV Sodium 141 Potassium 3.6 Chloride 110 H Carbon Dioxide 23 Anion Gap 8 BUN 13 Creatinine 0.4 L Creat Clearance w eGFR > 60 Random Glucose 94 Calcium 7.4 L Phosphorus 1.6 L Magnesium 2.3 Urine Color Urine Appearance Urine pH Ur Specific [place] Urine Protein Urine Glucose (UA) Urine Ketones Urine Blood Urine Nitrite Urine Bilirubin Urine Urobilinogen Ur Leukocyte Esterase Urine WBC (Auto) Urine RBC (Auto) Ur Epithelial Cells Urine Bacteria Hyaline Casts Urine Mucus Blood Type Current Medications Generic Name Dose Route Start Last Admin Trade Name Freq PRN Reason Stop Dose Admin Aspirin 81 mg 07/21/18 10:00 07/22/18 10:23 Ecotrin - PO 81 mg DAILY [facility] Administration Atorvastatin Calcium 20 mg 07/21/18 22:00 07/21/18 23:31 Lipitor - PO Not Given HS [facility] Sodium Chloride 1,000 mls @ 42 mls/hr 07/20/18 21:45 07/21/18 21:52 Normal Saline - IV 42 mls/hr ASDIR [facility] Administration ASSESSMENT AND PLAN: This is a 72 year old woman with a history of osteoarthritis, osteoporosis, hypothyroidism who presented to the ED with right arm weakness and numbness, right sided headache, and left sided facial droop. 1. Acute CVA with multiple infarcts - Symptoms resolved - CTA of neck shows no stenosis - MRI of brain shows chronic white matter ischemic changes, acute infarcts in right middle cerebellar peduncle, right cerebellum, right frontal lobe centrum semiovale at medial right central sulcus - Continue aspirin, Lipitor - Continue telemetry monitoring 2. Elevated alkaline phosphatase - RUQ US shows contracted gallbladder with multiple stones, no ductal dilatation, large right upper pole renal cyst - Repeat alk phos and check GGT 3. Vitamin B12 deficiency - Start B12 supplementation 4. Hypophosphatemia - Continue to supplement phosphorus 5. Hypothyroidism - TSH is normal (1.91) on no meds
[2018-07-22] MEDS ORDERED: HALOPERIDOL LACTATE 5 MG/ML IM ONE (15:43)
[2018-07-22] MEDS ORDERED: HALOPERIDOL 2 MG TABLET PO ONE (16:14)
[2018-07-22] MEDS ORDERED: HALOPERIDOL 5 MG TABLET (FP) PO ONE (16:17)
--- NOTE | 2018-07-22 16:39 | PN ---
Physical Exam: SUBJECTIVE: Patient seen and examined this AM. In no acute distress with no complaints though somewhat confused speech. Upon reevaluation later, pt fully dressed with all of her things packed, stated she is going downstairs to her office and that we cannot keep her here against her will. OBJECTIVE: Vital Signs Period Temp Pulse Resp BP Sys/Lantigua Pulse Ox Last 24 Hr 97.4 F-98.8 F 72-95 17-20 95-139/43-75 98-99 GENERAL: Alertm, oriented to self and date but thinks she is in her office in [place], no acute distress HEAD: Normocephalic, atraumatic. EYES: PERRL, EOMI, no scleral icterus EARS, NOSE, THROAT: oropharynx clear without exudates. Moist mucous membranes. LUNGS: CTA b/l, no crackles or wheezes HEART: Regular rate and rhythm, normal S1 and S2 without murmur ABDOMEN: Soft, nontender to palpation, normoactive bowel sounds NEUROLOGICAL: Cranial nerves II-XII grossly intact. Normal speech. 5/5 strength throughout. Laboratory Results - last 24 hr 07/20/18 07/20/18 07/22/18 21:31 23:25 05:35 WBC 4.6 RBC 4.42 Hgb 13.9 Hct 41.7 MCV 94.4 MCH 31.5 MCHC 33.4 RDW 14.2 Plt Count 183 MPV 9.1 Sodium Potassium Chloride Carbon Dioxide Anion Gap BUN Creatinine Creat Clearance w eGFR Random Glucose Calcium Phosphorus Magnesium Urine Color Yellow Urine Appearance Clear Urine pH 6.0 Ur Specific [place] 1.048 H Urine Protein 1+ H Urine Glucose (UA) Negative Urine Ketones 2+ H Urine Blood Negative Urine Nitrite Negative Urine Bilirubin Negative Urine Urobilinogen 2.0 H Ur Leukocyte Esterase Negative Urine WBC (Auto) 2 Urine RBC (Auto) 2 Ur Epithelial Cells Rare Urine Bacteria Rare Hyaline Casts 1 Urine Mucus Few Blood Type B POSITIVE 07/22/18 05:35 WBC RBC Hgb Hct MCV MCH MCHC RDW Plt Count MPV Sodium 141 Potassium 3.6 Chloride 110 H Carbon Dioxide 23 Anion Gap 8 BUN 13 Creatinine 0.4 L Creat Clearance w eGFR > 60 Random Glucose 94 Calcium 7.4 L Phosphorus 1.6 L Magnesium 2.3 Urine Color Urine Appearance Urine pH Ur Specific [place] Urine Protein Urine Glucose (UA) Urine Ketones Urine Blood Urine Nitrite Urine Bilirubin Urine Urobilinogen Ur Leukocyte Esterase Urine WBC (Auto) Urine RBC (Auto) Ur Epithelial Cells Urine Bacteria Hyaline Casts Urine Mucus Blood Type Active Medications Generic Name Dose Route Start Last Admin Trade Name Tavo PRN Reason Stop Dose Admin Aspirin 81 mg 07/21/18 10:00 07/22/18 10:23 Ecotrin - PO 81 mg DAILY [facility] Administration Atorvastatin Calcium 20 mg 07/21/18 22:00 07/21/18 23:31 Lipitor - PO Not Given HS [facility] Cyanocobalamin 1,000 mcg 07/23/18 10:00 Vitamin B12 Injection - IM DAILY [facility] Sodium Chloride 1,000 mls @ 42 mls/hr 07/20/18 21:45 07/21/18 21:52 Normal Saline - IV 42 mls/hr ASDIR [facility] Administration ASSESSMENT/PLAN: 72 yo f w/ PMH OA, osteoporosis and hypothyroidism admitted with c/o right arm weakness, numbness and right sided headache Acute Delirium -Pt noted with acute delirium likely secondary to hospitalization and unfamiliar surroundings -Attempted to reorient patient but she is adamant that she is leaving -Attempted to speak with niece who is unable to come at this time but spoke with pt on the phone and convinced her to return to her room for now -Refusing IM/IV medications and became aggressive when suggested that she may need IM injection -Pt states she will take a pill however (though she has been refusing other PO meds), Haldol 5mg PO ordered, nursing staff will attempt to administer -Constant supervision required as pt is unsafe to discharge and is a risk to elope -Psychiatry consulted will await further recommendations CVA/TIA -Right sided symptoms have greatly improved/resolved -Left facial droop noted in ED -Neurology consultation appreciated -CT with chronic ischemic changes but no acute pathology -CTA without any evidence of hemodynamically significant stenosis -Brain MRI pending -ECHO without any significant valvular or structural abnormalities, EF normal -ASA 81 -Lipitor 20 mg PO HS -Pt refusing most of her medications Hypothyroidism -Not on any medications at home -TSH 1.91, will hold off medications for now but should regularly follow up with primary for monitoring OA -Pain control with Tylenol PRN Vitamin Deficiency -Vegan diet for many years -B12 is low at 67 -B12 shot given -B6 and Folate levels pending -H/H within normal limits DVT Prophylaxis -SCDs and Early Ambulation FEN -Fluids: none -Electrolytes: HypoPhos, pt refusing repletion -Nutrition: Passed bedside swallow eval, Regular diet Disposition Telemetry Visit type - Emergency Visit Emergency Visit: Yes ED Registration Date: 07/21/18 Care time: The patient presented to the Emergency Department on the above date and was hospitalized for further evaluation of their emergent condition. - New Patient This patient is new to me today: No - Critical Care Critical Care patient: No
[2018-07-22] MEDS ORDERED: ATORVASTATIN CA 40 MG TABLET (FP) PO SCH (22:00)
[2018-07-22] MEDS: NAPH,MB-DB/K PH,MBDB POWDER PACKET PO SCH (22:15)
[2018-07-23] MEDS: NAPH,MB-DB/K PH,MBDB POWDER PACKET PO SCH ×2 (06:12→14:13)
[2018-07-23 08:29] LABS: ALBUMIN 3.8 g/dl (3.4-5.0); ALK PHOS 771 U/L (45-117); ANION GAP 7 MMOL/L (8-16); BILIRUBIN,DIRECT 0.2 mg/dL (0.0-0.2); BILIRUBIN,TOTAL 0.6 mg/dL (0.2-1); BLOOD UREA NITROGEN 15 mg/dL (7-18); CALCIUM 7.9 mg/dL (8.5-10.1); CHLORIDE 111 mmol/L (98-107); CO2 26 mmol/L (21-32); CREATININE 0.5 mg/dL (0.55-1.3); GAMMA GLUTAMYL TRANSPEPTIDASE 10 U/L (5-85); GLUCOSE,RANDOM 90 mg/dL (74-106); PHOSPHOROUS 2.3 mg/dL (2.5-4.9); POTASSIUM 3.4 mmol/L (3.5-5.1); SGOT/AST 13 U/L (15-37); SGPT/ALT 14 U/L (13-61); SODIUM 143 mmol/L (136-145); TOT PROT 6.7 g/dl (6.4-8.2)
--- NOTE | 2018-07-23 09:11 | PN ---
Progress Note (short form) - Note Progress Note: Neurology HISTORY OF PRESENT ILLNESS: 72 y/o F w/ PMH hypothryoidism (not 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 The patient stated that she was seated at home when she felt an acute onset of 8/10 right sided headache which centered over her right eye and radiated down the right side of her neck. This headache was associated with "weird changes" in her vision and right hand numbness. The patient called her niece, who is a nurse, who assessed her. The patients's niece endorsed right sided weakness and numbness on exam and called EMS. On arrival to ED, the patient's right sided weakness was still present, but improving. ED staff noted a left sided facial droop. NIH stoke scale 2. Chana guido was called. CT of the head was negative. On re-evaluation, the patient's RUE weakness had resolved, but a left sided facial droop still remained (NIH stroke scale 1). Per notes, Dr. Soto was called from the ED and suggested a CTA and Brain MRI as well as 81mg asa and 40 mg Lipitor. Elected to hold off on Tpa since the patient's ssx were improving. Patient remains asymptomatic. MRI completed and reviewed and discussed, showed multiple infarcts including R cerebellar and R frontal, acute. CTA neck completed and reviewed, otherwise normal, L vertebral not fully visualized but this would not explain right sided events. Patient documented to be confused yesterday. She was able to tell me name, location, date today. Though was tangential and would talk about being put on insurance. Unclear if her baseline has cognitive impairment but CVA workup completed. Consider psych consult if patient with delusions. Active Medications Aspirin (Ecotrin -) 81 mg PO DAILY [facility] Last Admin: 07/22/18 10:23 Dose: 81 mg Atorvastatin Calcium (Lipitor -) 40 mg PO HS [facility] Last Admin: 07/22/18 22:15 Dose: 40 mg Cyanocobalamin (Vitamin B12 Injection -) 1,000 mcg IM DAILY [facility] Sodium Chloride (Normal Saline -) 1,000 mls @ 42 mls/hr IV ASDIR [facility] Last Admin: 07/21/18 21:52 Dose: 42 mls/hr Potassium Phos/Sodium Phos (Phos-Nak Packet -) 1 packet PO TID [facility] Last Admin: 07/23/18 06:12 Dose: 1 packet PHYSICAL EXAMINATION Vital Signs Period Temp Pulse Resp BP Sys/Lantigua Pulse Ox Last 24 Hr 97.4 F-98.6 F 72-122 16-20 89-144/43-97 98-99 GENERAL: Awake, alert, and fully oriented, in no acute distress. HEAD: Normal with no signs of trauma. EYES: Pupils equal, round and reactive to light, extraocular movements intact, sclera anicteric, conjunctiva clear. No lid lag. EARS, NOSE, THROAT: oropharynx clear without exudates. Moist mucous membranes. NECK: Normal range of motion, supple without lymphadenopathy, JVD, or masses. LUNGS: Breath sounds equal, clear to auscultation bilaterally. No wheezes, and no crackles. No accessory muscle use. HEART: Regular rate and rhythm, normal S1 and S2 without murmur, rub or gallop. ABDOMEN: Soft, nontender, not distended, normoactive bowel sounds, no guarding, no rebound, no masses. No hepatomegaly or splenomegaly. LOWER EXTREMITIES: 2+ pulses, warm, well-perfused. No calf tenderness. No peripheral edema. NEUROLOGICAL: Cranial nerves II-X intact. Normal speech. Moving all extremities equally, Sensation preserved throughout. Slight left sided facial droop noted. SKIN: Warm, dry, normal turgor, no rashes or lesions noted, normal capillary refill. CBCD WBC 4.6 K/mm3 (4.0-10.0) 07/22/18 05:35 RBC 4.42 M/mm3 (3.60-5.2) 07/22/18 05:35 Hgb 13.9 GM/dL (10.7-15.3) 07/22/18 05:35 Hct 41.7 % (32.4-45.2) 07/22/18 05:35 MCV 94.4 fl (80-96) 07/22/18 05:35 MCHC 33.4 g/dl (32.0-36.0) 07/22/18 05:35 RDW 14.2 % (11.6-15.6) 07/22/18 05:35 Plt Count 183 K/MM3 (134-434) 07/22/18 05:35 MPV 9.1 fl (7.5-11.1) 07/22/18 05:35 CMP Sodium 143 mmol/L (136-145) 07/23/18 07:15 Potassium 3.4 mmol/L (3.5-5.1) L 07/23/18 07:15 Chloride 111 mmol/L (98-107) H 07/23/18 07:15 Carbon Dioxide 26 mmol/L (21-32) 07/23/18 07:15 Anion Gap 7 MMOL/L (8-16) L 07/23/18 07:15 BUN 15 mg/dL (7-18) 07/23/18 07:15 Creatinine 0.5 mg/dL (0.55-1.3) L 07/23/18 07:15 Creat Clearance w eGFR > 60 (>60) 07/23/18 07:15 Random Glucose 90 mg/dL (74-106) 07/23/18 07:15 Calcium 7.9 mg/dL (8.5-10.1) L 07/23/18 07:15 Total Bilirubin 0.6 mg/dL (0.2-1) 07/23/18 07:15 AST 13 U/L (15-37) L 07/23/18 07:15 ALT 14 U/L (13-61) 07/23/18 07:15 Alkaline Phosphatase 771 U/L (45-117) H 07/23/18 07:15 Total Protein 6.7 g/dl (6.4-8.2) 07/23/18 07:15 Albumin 3.8 g/dl (3.4-5.0) 07/23/18 07:15 CARDIAC ENZYMES Creatine Kinase 70 IU/L (26-192) 07/20/18 21:51 Troponin I < 0.02 ng/ml (0.00-0.05) 07/20/18 21:51 ASSESSMENT/PLAN: 72 y/o F w/ PMH hypothryoidism (not 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 Chana guido was called. CT of the head was negative. On re-evaluation, the patient's RUE weakness had resolved, but a left sided facial droop still remained (NIH stroke scale 1). Per notes, Dr. Soto was called from the ED and suggested a CTA and Brain MRI as well as 81mg asa and 40 mg Lipitor. Elected to hold off on Tpa since the patient's ssx were improving. Patient remains asymptomatic. Consulted placed for me, reached out to Dr. Soto to inform him and offered to see patient, he was in agreement for me to see the patient. She remains stable neurologically, C Patient remains asymptomatic. MRI completed and reviewed and discussed, showed multiple infarcts including R cerebellar and R frontal, acute. CTA neck completed and reviewed, otherwise normal, L vertebral not fully visualized but this would not explain right sided events.Patient documented to be confused yesterday. She was able to tell me name, location, date today. Though was tangential and would talk about being put on insurance. Unclear if her baseline has cognitive impairment but CVA workup completed and mental status appears improved. Consider psych consult if patient with delusions. Continue ASA, Statin.
[2018-07-23] MEDS ORDERED: CYANOCOBALAMIN (VITAMIN B-12) 1000 MCG/1 ML VIAL IM SCH (10:00)
[2018-07-23] MEDS: ASPIRIN COATED 81 MG TABLET.EC PO SCH (10:21)
--- NOTE | 2018-07-23 11:28 | PN ---
Progress Note, ENERGY CONSERVATION DIRECTOR - Note Progress Note: Selected Entries 07/23/18 07/23/18 07/23/18 01:34 05:00 08:20 Breakfast Temperature 97.7 F 98.0 F 98.6 F 07/23/18 10:05 Breakfast 75% Temperature Laboratory Tests 07/22/18 05:35 WBC 4.6 Tolerating diet. Notes reviewed. Pt confused, impaired insight/reasoning. Pending Psych consult.
--- NOTE | 2018-07-23 13:33 | PN ---
Teaching Attending Note Name of Resident: Og Aparicio ATTENDING PHYSICIAN STATEMENT I saw and evaluated the patient. I reviewed the resident's note and discussed the case with the resident. I agree with the resident's findings and plan as documented. SUBJECTIVE: Patient has no complaints and wants to go home. OBJECTIVE: Vital Signs Period Temp Pulse Resp BP Sys/Lantigua Pulse Ox Last 24 Hr 97.7 F-98.6 F 72-122 16-20 89-144/46-97 99-99 HEART: S1S2, RRR LUNGS: Clear ABDOMEN: Soft, non-tender, non-distended, normal BS EXTREMITIES: No edema NEUROLOGICAL: Alert, oriented, non-focal Laboratory Results - last 24 hr 07/21/18 07/23/18 05:25 07:15 Hct 42.5 Sodium 143 Potassium 3.4 L Chloride 111 H Carbon Dioxide 26 Anion Gap 7 L BUN 15 Creatinine 0.5 L Creat Clearance w eGFR > 60 Random Glucose 90 Calcium 7.9 L Phosphorus 2.3 L Total Bilirubin 0.6 Direct Bilirubin 0.2 GGT 10 AST 13 L ALT 14 Alkaline Phosphatase 771 H Total Protein 6.7 Albumin 3.8 Folate 622 Folate Hemolysate 264.3 Current Medications Generic Name Dose Route Start Last Admin Trade Name Freq PRN Reason Stop Dose Admin Aspirin 81 mg 07/21/18 10:00 07/23/18 10:21 Ecotrin - PO 81 mg DAILY [facility] Administration Atorvastatin Calcium 40 mg 07/22/18 22:00 07/22/18 22:15 Lipitor - PO 40 mg HS [facility] Administration Cyanocobalamin 1,000 mcg 07/23/18 10:00 07/23/18 10:21 Vitamin B12 Injection - IM 1,000 mcg DAILY [facility] Administration Sodium Chloride 1,000 mls @ 42 mls/hr 07/20/18 21:45 07/21/18 21:52 Normal Saline - IV 42 mls/hr ASDIR [facility] Administration Potassium Phos/Sodium Phos 1 packet 07/22/18 22:00 07/23/18 06:12 Phos-Nak Packet - PO 1 packet TID [facility] Administration ASSESSMENT AND PLAN: This is a 72 year old woman with a history of osteoarthritis, osteoporosis, hypothyroidism who presented to the ED with right arm weakness and numbness, right sided headache, and left sided facial droop. 1. Acute CVA with multiple infarcts - Symptoms resolved - CTA of neck shows no stenosis - MRI of brain shows chronic white matter ischemic changes, acute infarcts in right middle cerebellar peduncle, right cerebellum, right frontal lobe centrum semiovale at medial right central sulcus - Continue aspirin, Lipitor 2. Elevated alkaline phosphatase - RUQ US shows contracted gallbladder with multiple stones, no ductal dilatation, large right upper pole renal cyst - Alk phos remains elevated and GGT is normal - will need evaluation for bone disease as outpatient 3. Vitamin B12 deficiency - Continue B12 supplementation 4. Hypophosphatemia - Improving 5. Hypothyroidism - TSH is normal (1.91) on no meds 6. Disposition - Ok for discharge home today
[2018-07-23 15:02] VITALS: BP 101/77; PULSE 105; TEMP 98.3
--- NOTE | 2018-07-23 15:09 | DS ---
Physical Examination Vital Signs: Vital Signs Temperature 98.3 F 07/23/18 15:00 Pulse Rate 105 H 07/23/18 15:00 Respiratory Rate 18 07/23/18 15:00 Blood Pressure 101/77 07/23/18 15:00 O2 Sat by Pulse Oximetry (%) 99 07/23/18 08:13 Labs: CBC, BMP 07/22/18 05:35 07/23/18 07:15 Discharge Summary Reason For Visit: SUSPECTED CEREBROVASCULAR ACCIDENT (CVA) Current Active Problems TIA (transient ischemic attack) (Acute) Condition: Stable - Instructions Diet, Activity, Other Instructions: You were admitted with stroke like symptoms of weakness and facial droop. You were seen by a neurologist who recommended starting you on Aspirin and a medication called a statin. An MRI of your brain was done which revealed a few very small areas of decreased blood flow (small stroke areas). At this point all of your symptoms have resolved and you are medically safe for discharge. You were also found to have a vitamin B12 deficiency likely secondary to your vegan diet. You were given a B12 injection daily while you were in the hospital , and it is recommended that you take an oral B12 supplement which you can buy over the counter at the pharmacy without a prescription. You should continue taking a baby aspirin every day upon discharge from the hospital. Aspirin 81 mg once per day. You were also started on a medication called Lipitor. you should take one 40 mg tablet every night. You should follow up with your primary care physician within 1 week of discharge from the hospital. You should also follow up with the neurologist who saw you while you were in the hospital. the information has been included in the discharge packet. If you have any significant weakness or concerning symptoms, you should be evaluated by your doctor or return to the emergency department Referrals: Alex Haskins MD [Primary Care Provider] - 1 Week Niko Wells MD [Staff Physician] - Disposition: HOME - Home Medications Comprehensive Discharge Medication List: Ambulatory Orders Aspirin Coated [Ecotrin -] 81 mg PO DAILY #30 tablet.ec 07/22/18 Atorvastatin Ca [Lipitor] 40 mg PO HS #30 tablet 07/22/18
--- NOTE | 2018-07-23 15:17 | DS ---
Physical Exam: SUBJECTIVE: Patient seen and examined this AM. She is much more oriented today than yesterday. OBJECTIVE: Vital Signs Period Temp Pulse Resp BP Sys/Lantigua Pulse Ox Last 24 Hr 97.7 F-98.6 F 72-122 16-20 89-144/46-97 99-99 PHYSICAL EXAM GENERAL: Alert and oriented X 3, no acute distress HEAD: Normocephalic, atraumatic. EYES: PERRL, EOMI, no scleral icterus EARS, NOSE, THROAT: oropharynx clear without exudates. Moist mucous membranes. LUNGS: CTA b/l, no crackles or wheezes HEART: Regular rate and rhythm, normal S1 and S2 without murmur ABDOMEN: Soft, nontender to palpation, normoactive bowel sounds NEUROLOGICAL: Cranial nerves II-XII grossly intact. Normal speech. 5/5 strength throughout. Still with some confusion but back to baseline. 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 The patient states that she was seated at home when she felt an acute onset of 8/10 right sided headache which centered over her right eye and radiated down the right side of her neck. This headache was associated with "weird changes" in her vision and right hand numbness. The patient called her niece, who is a nurse, who assessed her. The patients's niece endorsed right sided weakness and numbness on exam and called EMS. On arrival to ED, the patient's right sided weakness was still present, but improving. ED staff noted a left sided facial droop. NIH stoke scale 2. Code guido was called. CT of the head was negative. On re-evaluation, the patient 's RUE weakness had resolved, but a left sided facial droop still remained (NIH stroke scale 1). Neurology was consulted from the ED and suggested a CTA and Brain MRI as well as 81mg asa and 40 mg Lipitor. Neuro elected to hold off on Tpa since the patient's ssx were improving. At the time of interview, the patient has no other complaints. Hospital Course: She was seen by neurology who recommended MRI of the Brain, ASA 81 and statin. She was started on Lipitor 40 mg PO HS. Brain MRI revealed multiple small infarcts in different areas. Her symptoms resolved completely. Her hospital course was complicated by an episode of acute delirium. Attempted to reorient the patient unsuccessfully and she required one dose of Haldol. Her delirium completely resolved overnight. Of note her Alk Phos was noted to be very elevated with normal LFTs and GGT within normal range. It was recommended she have close follow up with her primary as she may have some bone pathology and neurology with the acute infarcts. Minutes to complete discharge: 35 Discharge Summary Reason For Visit: SUSPECTED CEREBROVASCULAR ACCIDENT (CVA) Current Active Problems TIA (transient ischemic attack) (Acute) Condition: Stable - Instructions Diet, Activity, Other Instructions: You were admitted with stroke like symptoms of weakness and facial droop. You were seen by a neurologist who recommended starting you on Aspirin and a medication called a statin. An MRI of your brain was done which revealed a few very small areas of decreased blood flow (small stroke areas). At this point all of your symptoms have resolved and you are medically safe for discharge. You were also found to have a vitamin B12 deficiency likely secondary to your vegan diet. You were given a B12 injection daily while you were in the hospital , and it is recommended that you take an oral B12 supplement which you can buy over the counter at the pharmacy without a prescription. You should continue taking a baby aspirin every day upon discharge from the hospital. Aspirin 81 mg once per day. You were also started on a medication called Lipitor. you should take one 40 mg tablet every night. You should follow up with your primary care physician within 1 week of discharge from the hospital. You should also follow up with the neurologist who saw you while you were in the hospital. the information has been included in the discharge packet. If you have any significant weakness or concerning symptoms, you should be evaluated by your doctor or return to the emergency department Referrals: Alex Haskins MD [Primary Care Provider] - 1 Week Niko Wells MD [Staff Physician] - Disposition: HOME - Home Medications Comprehensive Discharge Medication List: Ambulatory Orders Aspirin Coated [Ecotrin -] 81 mg PO DAILY #30 tablet.ec 07/22/18 Atorvastatin Ca [Lipitor] 40 mg PO HS #30 tablet 07/22/18 This patient is new to me today: No Emergency Visit: Yes ED Registration Date: 07/21/18 Care time: The patient presented to the Emergency Department on the above date and was hospitalized for further evaluation of their emergent condition. Critical Care patient: No - Discharge Referral Referred to [facility] Med [facility] No
== END 2018-07-23 20:26 | disposition home health service (06) | DRG 66 ==
LOC: JER 21:16 → JERBED 22:24 → OBSVTOIN 07-21 18:42 → J4W 07-22 11:37
PROVIDERS: ADMIT Internal Medicine; ATTEND Internal Medicine
DX: I63.9 Cerebral infarction, unspecified (principal); R29.810 Facial weakness; R29.701 NIHSS score 1; E83.39 Other disorders of phosphorus metabolism; E03.9 Hypothyroidism, unspecified; E53.8 Deficiency of other specified B group vitamins; R41.0 Disorientation, unspecified; M81.0 Age-related osteoporosis without current pathological fracture
CPT/HCPCS: 36415; 70450-TC; 70498-TC; 70551-TC; 76705-TC; 80048; 80053; 80061; 80076; 81003; 81015; 82140; 82465; 82550; 82607; 82747; 82962; 82977; 83718; 83721; 83735; 84100; 84207; 84443; 84478; 84484; 85014; 85025; 85027; 85610; 85651; 85730; 86850; 86900; 86901; 93005; 93010; 93306-TC; 97116-GP; 97161-GP; 99285-25; G0378; J7030

== ENCOUNTER 2023-09-27 02:25 | Emergency (ER) | payer OTHER ==
[2023-09-27 02:36] VITALS: TEMP 97.5; BMI 22.3
[2023-09-27 03:15] LABS: BASO % 0.9 % (0-2.0); EOS % 3.5 % (0-4.5); HEMOGLOBIN 12.7 GM/dL (10.7-15.3); LYMPH % 33.8 % (8-40); MCH 30.4 pg (25.7-33.7); MCHC 33.3 g/dl (32.0-36.0); MEAN CELL VOLUME 91.2 fl (80-96); MEAN PLT VOLUME 8.9 fl (7.5-11.1); MONO % 7.7 % (3.8-10.2); NEUT % 54.1 % (42.8-82.8); PLATELET COUNT 173 10^3/uL (134-434); RBC 4.17 M/mm3 (3.60-5.2); RDW 13.3 % (11.6-15.6); WHITE BLOOD COUNT 4.3 K/mm3 (4.0-10.0)
[2023-09-27] MEDS ORDERED: ACETAMINOPHEN INJECTION 100 ML IVPB ONE (03:24)
[2023-09-27] MEDS: ACETAMINOPHEN 1000 MG/100 ML BAG IVPB ONE (03:33)
[2023-09-27 03:35] LABS: POTASSIUM 4.2 mmol/L (3.5-5.1)
[2023-09-27 03:37] LABS: CALCIUM 9.2 mg/dL (8.5-10.1)
[2023-09-27 03:38] LABS: ALBUMIN 3.8 g/dl (3.4-5.0); MAGNESIUM 2.1 mg/dL (1.8-2.4)
[2023-09-27 03:41] LABS: CREATININE 0.7 mg/dL (0.55-1.3)
[2023-09-27 03:43] LABS: BILIRUBIN,TOTAL 0.5 mg/dL (0.2-1)
[2023-09-27] MEDS ORDERED: CEFTRIAXONE 1 GM/50 ML BAG ONE (04:05)
[2023-09-27] MEDS ORDERED: AZITHROMYCIN IVPB 500 MG/250 ML BAG IVPB ONE (04:16)
[2023-09-27] MEDS: AZITHROMYCIN IVPB 500 MG in DEXTROSE 5%-WATER - 250 ML IVPB ONE (04:28)
[2023-09-27 07:31] VITALS: BP 135/92; PULSE 70; RESP 16
== END 2023-09-27 09:41 | disposition home or self-care (01) ==
LOC: JER 02:25
PROC: 3E03329 Introduction of Other Anti-infective into Peripheral Vein, Percutaneous Approach (ICD-10-PCS; principal; 2023-09-27)
PROC: 3E03329 Introduction of Other Anti-infective into Peripheral Vein, Percutaneous Approach (ICD-10-PCS; 2023-09-27)
PROC: 3E033GC Introduction of Other Therapeutic Substance into Peripheral Vein, Percutaneous Approach (ICD-10-PCS; 2023-09-27)
DX: R07.2 Precordial pain (principal); Z20.822 Contact with and (suspected) exposure to COVID-19
CPT/HCPCS: 0241U-QW; 36415; 71045-TC-FY; 80053; 83735; 84484; 85025; 93005; 93010; 99285-25; J0131